=== PATIENT | female | born 1955 | race Caucasian/White ===

== ENCOUNTER 2020-09-16 20:39 | Inpatient (IN) | payer BC ==
[2020-09-17] MEDS ORDERED: Labetalol HCl 100 MG/20 ML VIAL SLOW IVP PRN (03:16)
[2020-09-17] MEDS ORDERED: Acetaminophen 650 MG Suppository PR PRN (04:10)
--- NOTE | 2020-09-17 04:33 | PDOC.HHP ---
Hospitalist HPI - History of Present Illness History of Present Illness: DATE OF ADMISSION: 09/17/2020 TIME OF ASSESSMENT: 0300 CHIEF COMPLAINT: Loss of vision in right eye HPI: Patient presents with complaints of persistent loss of vision in her right eye since Wednesday evening. States she was at a gathering at home and suddenly noticed trouble with her right eye. She thought it was due to her glasses being foggy. States while she was driving yesterday she closed her left eye and noticed complete loss of the superior visual field in her right eye. Denies any pain associated with it at any time. Reports a mild general headache. No speech changes. No extremity weakness or numbness. Denies any dizziness. Has otherwise felt well and without complaints. Has never experienced anything like this before and denies any trauma. ROS: No fevers, chlils or sweats. No n/v. No chest pain, palpitations or sob. No recent cough. All other review of systems are negative. ED COURSE: Patient seen at outside ER where she was given 325 mg Of Aspirin, 1 L of NS, and 1 gram of Tylenol for her headache. She was seen by the comptometer operator for retinal artery branch occlusion who advised admitting her for CVA work-up. EKG showed NSR. CT head: No acute intracranial findings. CXR: showed ?lingular infiltrate Labs notable for a potassium of 3.3. CBC and CMP unremarkable. Troponin normal. TPA not given due to symptoms starting >48 hours prior to presentation. PAST MEDICAL HISTORY: 1. History of Breast cancer 2. Hypertension 3. Tobacco use 4. Depression PAST SURGICAL HISTORY: 1. Bilateral mastectomy SOCIAL HISTORY: Patient is fully independent. She smokes 1/2 pack per day x 30 years. No alcohol use or drug use. FAMILY HISTORY: Noncontributory. History of renal disease/kidney stones in her sibling and children. ALLERGIES: No known drug allergies. CURRENT MEDICATIONS: 1. Citalopram. 2. Hydrochlorathiazide 25 mg PO daily. 3. Atenolol 25 mg PO daily. 4. Vitamin D3. 1,000 unit daily. 5. Aspirin 81 mg PO daily. 6. Trelegy Ellipta. - Exam General Appearance: NAD, awake alert General - other findings: 168/92, MAP: 117, Pulse: 58, RR: 17, Temp: 98.3 (Oral), O2 sat 98% Eye: anicteric sclera Eye - other findings: Slight delayed pupillary reflex in right eye, EOM intact ENT: normocephalic atraumatic, no oropharyngeal lesions ENT - other findings: No tenderness to methodist or jaw or scalp Neck: supple Heart: RRR, normal peripheral pulses Respiratory: CTAB, no rales, no ronchi, normal chest expansion, wheezes Respiratory - other findings: slight expiratory wheeze at right lung base Gastrointestinal: soft, non-tender, non-distended, no guarding, no rigidity Extremities: no edema Skin: normal turgor, no lesions, no rashes Neurological: cranial nerve grossly intact, normal sensation to touch, no weakness Musculoskeletal: normal tone, normal strength, no muscle wasting Psychiatric: normal affect, normal behavior, A&O x 3 Hospitalist Results - Labs Lab results: ESR Westergren 9 mm/hr (Less than 30) 09/16/20 22:18 C-Reactive Protein Less than 0.50 mg/dL (= or < 0.5) 09/16/20 22:18 - EKG Interpretation EKG: normal sinus rhythm on her EKG Hospitalist H&P A/P - Problem (1) Retinal artery branch occlusion of right eye Code(s): H34.231 - RETINAL ARTERY BRANCH OCCLUSION, RIGHT EYE Status: Acute (2) Headache Code(s): R51.9 - HEADACHE, UNSPECIFIED Status: Acute (3) Essential hypertension Code(s): I10 - ESSENTIAL (PRIMARY) HYPERTENSION Status: Chronic (4) Depression Code(s): F32.9 - MAJOR DEPRESSIVE DISORDER, SINGLE EPISODE, UNSPECIFIED Status: Chronic (5) Tobacco use Code(s): Z72.0 - TOBACCO USE Status: Chronic (6) History of breast cancer Code(s): Z85.3 - PERSONAL HISTORY OF MALIGNANT NEOPLASM OF BREAST Status: Chronic - Plan Plan: Retinal artery occlusion - Consult placed to ophthalmology here. (ESR and CRP negative) CVA rule out Cardiac monitoring CVA work-up including Echo and Brain MRI Check Lipid panel Carotid US Neuro consult Statin and Aspirin. Continue Tylenol for headache. Monitor BP, resume home meds once verified. Repeat CBC/CMP, BNP, lactic acid and Mg+ Lung Infiltrates- noted on CXR with wheezing on exam Monitor O2 sats Chest CT to assess ?infiltrates noted on CXR Resume home inhalers Duo neb PRN Tobacco use disorder: Tobacco cessation GI prophylaxis with Famotidine DVT Prophylaxis with mechanical SCDs. Code status: FULL CODE Case discussed with Dr. Luther who agrees with plan as above.
[2020-09-17] MEDS ORDERED: Acetaminophen 325 MG TAB ONE (06:21)
[2020-09-17] MEDS: Acetaminophen 325 MG TAB PO PRN ×2 (06:24→22:03)
[2020-09-17 06:49] LABS: #Basophils 0.1 thou/uL (0.0-0.2); #Eosinphils 0.1 thou/uL (0.0-0.7); #Lymphocytes 2.4 thou/uL (1.20-3.40); #Monocytes 0.3 thou/uL (0.11-0.59); #Neutrophils 2.7 thou/uL (1.40-6.50); %Basophils 1.2 % (0.0-1.0); %Eosinophils 2.1 % (0.0-10.0); %Lymphocytes 42.9 % (21.0-51.0); %Monocytes 5.8 % (0.0-10.0); %Neutrophils 47.9 % (42.0-75.0); Hemoglobin 13.8 g/dL (12.0-16.0); Mean Corpuscular HGB CONC 34.1 g/dL (32.0-36.0); Mean Corpuscular Volume 93.8 fL (78.0-98.0); Mean Platelet Volume 7.7 fL (7.4-10.4); Platelet Count 167 thou/uL (130-400); RBC Distribution Width 11.6 % (11.5-14.5); Red Blood Cell (RBC) Count 4.32 mill/uL (4.20-5.40); White Blood Cell (WBC) Count 5.7 thou/uL (4.8-10.8)
[2020-09-17 07:14] LABS: Anion Gap 11 mmol/L (10-20); BUN (Urea Nitrogen) 6 mg/dL (9.8-20.1); Calc. Creatinine Clearance 0 mL/min (70-130); Calcium 8.8 mg/dL (7.8-10.44); Carbon Dioxide 34 mmol/L (23-31); Cardiac Risk 3.8 (Less than 4.5); Chloride 99 mmol/L (98-107); Cholesterol 164 mg/dl (< 200 Desired); Estimated GFR-MDRD 74; Glucose 85 mg/dL (80-115); HDL Cholesterol 43 mg/dL (>60 Neg Risk); LDL Cholesterol, Calculated 96 mg/dL; Potassium 3.6 mmol/L (3.5-5.1); Sodium 140 mmol/L (136-145); Triglycerides 124 mg/dL (Less than 150)
--- NOTE | 2020-09-17 08:31 | CT ---
Exam: Chest CT without contrast HISTORY: Possible infiltrate on chest radiograph. COMPARISON: None Correlation: Chest radiograph 09/16/2020 FINDINGS: Lower neck and axilla: No masses or lymphadenopathy Mediastinum: Limited evaluation by the absence of IV contrast. No mass, lymphadenopathy or hematoma HEART: Normal heart size. No significant pericardial fluid. There is calcification of the mitral evelia dariel. Aorta: No aneurysm. No periaortic fat stranding Subdiaphragmatic structures: Surgically absent gallbladder Trachea and central bronchi: Patent Pleural spaces: No effusion Pneumothorax: None LUNGS: Scarring and atelectasis in the dependent portion of both lower lobes. No suspicious masses or nodules. Minimal emphysematous change involving the upper lobes. No significant consolidation or masses in the lingula. Osseous structures: No lytic or blastic lesions IMPRESSION: 1. No significant infiltrate in the lung parenchyma. There is scarring and atelectasis in the lower l obes. 2. Mild emphysematous changes in the upper lobes.
[2020-09-17 08:49] LABS: SARS-CoV-2 MS2 Positive; SARS-CoV-2 N Gene Negative; SARS-CoV-2 S Gene Negative; SARS-CoV-2 by NAA Not Detected (NotDetected); SARS-CoV-2 orf1ab Negative
[2020-09-17] MEDS ORDERED: Aspirin 325 mg Enteric Coated Tablet PO SCH (09:00)
[2020-09-17] MEDS ORDERED: Aspirin 325 MG TAB ONE (10:36)
[2020-09-17] MEDS ORDERED: Famotidine 20 MG TAB ONE (10:36)
[2020-09-17] MEDS: Famotidine 20 MG TAB PO SCH ×2 (10:42→21:53)
[2020-09-17 14:10] VITALS: BMI 25.3
--- NOTE | 2020-09-17 14:44 | MRI ---
Exam: Brain MRI without contrast HISTORY: CVA. Vision loss in the top half of the left eye since Wednesday. COMPARISON: None FINDINGS: Calvarial marrow signal intensity: Appropriate T1 signal Gradient echo sequence: No hemorrhage Brain parenchyma: No mass, mass effect or midline shift. Brain volume, age-appropriate. Cortical malcolm-white matter differentiation: Preserved Restricted diffusion: Central arterial flow voids are maintained. Absent restricted diffusion White matter signal intensities:Scattered T2, FLAIR white matter hyperintensities due to chronic smal l vessel ischemic changes Sinuses: Adequate aeration of the paranasal sinuses and mastoid air cells. IMPRESSION: 1. Absent restricted diffusion. No acute infarct. 2. Scattered chronic small vessel ischemic changes of the white matter
--- NOTE | 2020-09-17 15:14 | ULT ---
BILATERAL CAROTID DUPLEX ULTRASOUND: HISTORY: Stroke TECHNIQUE: Grayscale, color-flow and spectral Doppler ultrasound imaging of the extracranial carotid artery syst ems and vertebral arteries was performed bilaterally. FINDINGS: No large amount of echogenic plaque is seen involving the common carotid or internal carotid arteries . The peak systolic velocity in the right ICA measures 98.1 cm/s. The peak systolic velocity in the ri ght CCA measures 63.9 cm/s. The peak systolic velocity in the left ICA measures 98.3 cm/s. The peak systolic velocity in the l eft CCA measures 118.9 cm/s. The right IC/CC ration is1.5. The left IC/CC ratio is 0.8. Vertebral flow: antegrade, bilaterally. . IMPRESSION: No hemodynamically significant stenosis of left or right cervical carotid artery
[2020-09-17] MEDS ORDERED: hydrALAZINE 20 MG/ML VIAL SLOW IVP PRN (16:00)
[2020-09-17] MEDS: Atenolol 25 MG TAB PO SCH (16:27)
--- NOTE | 2020-09-17 17:42 | CON ---
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 HISTORY OF PRESENT ILLNESS: Ms. Lopez is a 64-year-old female, who presented with complaint of persistent loss of vision in right eye but yesterday when she was driving, she closed her left eye and found a visual defect in the right eye. The patient denies any focal weakness, focal paresthesias, nausea, vomiting, headaches, chest pain, abdominal pain, recent illness or recent exposure to COVID, dizziness, vertigo, or head trauma associated with episodes. In the emergency room, she was given aspirin. There was a cocern for central retinal branch artery occlusion and admitted for CVA workup. Head CT was done, which was negative for acute intracranial pathology. EKG showed normal sinus rhythm. Not a tpa candidate because symptom onset greater than 48 hours prior to presentation. REVIEW OF SYSTEMS: All systems reviewed and were negative except the pertinent positives and negatives mentioned in the HPI. PAST MEDICAL HISTORY: History of breast cancer, hypertension, tobacco abuse, depression. PAST SURGICAL HISTORY: Bilateral mastectomy. SOCIAL HISTORY: The patient is fully independent. She smoked half pack per day for the last 30 years. No history of alcohol or drug abuse. FAMILY HISTORY: Significant for renal stones in her sibling and children. ALLERGIES: NO KNOWN DRUG ALLERGIES. CURRENT MEDICATIONS: 1. Citalopram. 2. Hydrochlorothiazide. 3. Atenolol. 4. Vitamin D3. 5. Aspirin. 6. Trelegy Ellipta. PHYSICAL EXAMINATION: General Appearance: NAD, awake alert General - other findings: 168/92, MAP: 117, Pulse: 58, RR: 17, Temp: 98.3 (Oral), O2 sat 98% Eye: anicteric sclera Eye - other findings: Slight delayed pupillary reflex in right eye, EOM intact ENT: normocephalic atraumatic, no oropharyngeal lesions ENT - other findings: No tenderness to mu-ism or jaw or scalp Neck: supple Heart: RRR, normal peripheral pulses Respiratory: CTAB, no rales, no ronchi, normal chest expansion, wheezes Respiratory - other findings: slight expiratory wheeze at right lung base Gastrointestinal: soft, non-tender, non-distended, no guarding, no rigidity Extremities: no edema Skin: normal turgor, no lesions, no rashes Neurological: Mental status; the patient is alert and oriented to person, place and time. Speech is clear. Recent and remote memory intact. Fund of knowledge is appropriate. Cranial nerves 3 through 12, 2 right superior quadrantanopia. Motor, muscle tone and bulk are normal. Strength 5/5 bilaterally. Sensory intact. Cerebellar, finger-nose testing intact. Gait deferred due to the patient's safety reason. DATA REVIEWED: I reviewed the ESR and C-reactive protein, which were within normal range. EKG showed normal sinus rhythm. Head CT did not reveal acute intracranial pathology. ESR Westergren 9 mm/hr (Less than 30) 09/16/20 22:18 C-Reactive Protein Less than 0.50 mg/dL (= or < 0.5) 09/16/20 22:18 ASSESSMENT AND PLAN: (1) Retinal artery branch occlusion of right eye Code(s): H34.231 - RETINAL ARTERY BRANCH OCCLUSION, RIGHT EYE Status: Acute (2) Headache Code(s): R51.9 - HEADACHE, UNSPECIFIED Status: Acute (3) Essential hypertension Code(s): I10 - ESSENTIAL (PRIMARY) HYPERTENSION Status: Chronic (4) Depression Code(s): F32.9 - MAJOR DEPRESSIVE DISORDER, SINGLE EPISODE, UNSPECIFIED Status: Chronic (5) Tobacco use Code(s): Z72.0 - TOBACCO USE Status: Chronic (6) History of breast cancer Code(s): Z85.3 - PERSONAL HISTORY OF MALIGNANT NEOPLASM OF BREAST Status: Chronic Ms. Lopez is a 64-year-old female, presented with retinal artery branch occlusion of the right eye and Ophthalmology consult pending. ESR and C-reactive protein are negative. Consider MRI of the brain to rule out acute intracranial process. 2D echo to evaluate for left ventricular ejection fraction. Telemetry to rule out arrhythmias. Carotid ultrasound to rule out hemodynamically significant stenosis. Check hemoglobin A1c, lipid profile, and TSH. Start aspirin high-intensity statin for secondary stroke prevention. PT/OT. Continue home medications. Permissive control of blood pressure at this time. Strict control of blood glucose. Continue medical management per primary team. DVT prophylaxis. GI prophylaxis. We will continue to follow. Thank you for the consult. Job ID: [id number] MTDD
[2020-09-17] MEDS ORDERED: Atorvastatin Calcium 40 MG TAB PO SCH (21:00)
[2020-09-17] MEDS ORDERED: Citalopram 20 MG TAB PO SCH (21:00)
[2020-09-18 05:28] LABS: #Eosinphils 0.1 thou/uL (0.0-0.7); #Lymphocytes 2.9 thou/uL (1.20-3.40); #Monocytes 0.4 thou/uL (0.11-0.59); #Neutrophils 2.7 thou/uL (1.40-6.50); %Basophils 0.8 % (0.0-1.0); %Eosinophils 1.5 % (0.0-10.0); %Lymphocytes 47.3 % (21.0-51.0); %Monocytes 6.6 % (0.0-10.0); %Neutrophils 43.9 % (42.0-75.0); Hemoglobin 13.2 g/dL (12.0-16.0); Mean Corpuscular HGB CONC 33.9 g/dL (32.0-36.0); Mean Corpuscular Hemoglobin 31.9 pg (27.0-31.0); Mean Corpuscular Volume 94.1 fL (78.0-98.0); Mean Platelet Volume 8.3 fL (7.4-10.4); Platelet Count 150 thou/uL (130-400); RBC Distribution Width 11.6 % (11.5-14.5); Red Blood Cell (RBC) Count 4.15 mill/uL (4.20-5.40)
[2020-09-18 05:48] LABS: Anion Gap 12 mmol/L (10-20); BUN (Urea Nitrogen) 11 mg/dL (9.8-20.1); Calc. Creatinine Clearance 91 mL/min (70-130); Calcium 9.1 mg/dL (7.8-10.44); Carbon Dioxide 29 mmol/L (23-31); Chloride 104 mmol/L (98-107); Estimated GFR-MDRD 74; Glucose 95 mg/dL (80-115); Potassium 4.7 mmol/L (3.5-5.1); Sodium 140 mmol/L (136-145)
[2020-09-18] MEDS ORDERED: Potassium Chloride 20 MEQ TAB PO SCH (09:00)
[2020-09-18] MEDS ORDERED: Hydrochlorothiazide 25 MG TAB PO SCH (09:00)
[2020-09-18] MEDS ORDERED: Aspirin 81 mg Enteric Coated Tablet PO SCH (09:00)
[2020-09-18] MEDS: Atenolol 25 MG TAB PO SCH (10:18)
[2020-09-18] MEDS: Acetaminophen 325 MG TAB PO PRN (10:18)
[2020-09-18] MEDS: Famotidine 20 MG TAB PO SCH (10:20)
--- NOTE | 2020-09-18 13:14 | PDOC.NEUPN ---
- Subjective Encounter Date: 09/18/20 Subjective: Ms. Sharma continues to have visual deficit. No other acute events in the last 24 hours. - Objective Vital Signs & Weight: Vital Signs (12 hours) Temp Pulse Resp BP BP Pulse Ox 09/18/20 11:47 97.6 F 57 L 19 97 09/18/20 10:18 59 L 141/77 H 09/18/20 07:49 98.0 F 57 L 19 193/90 H 100 09/18/20 04:12 98.3 F 60 18 185/87 H 97 09/18/20 01:55 52 L 171/84 H Weight Weight 171 lb 8.314 oz I&O: 09/17/20 09/18/20 09/19/20 06:59 06:59 06:59 Intake Total 130 Balance 130 Result Diagrams: 09/18/20 05:02 09/18/20 05:02 Radiology Reviewed by me: Yes EKG Reviewed by me: Yes ROS - Review of Systems Constitutional: denies: fever, chills, sweats, weakness, malaise, other Eyes: denies: pain, vision change, conjunctivae inflammation, eyelid inflammation, redness, other ENT: denies: ear pain, ear discharge, nose pain, nose discharge, nose congestion, mouth pain, mouth swelling, throat pain, throat swelling, other Gastrointestinal: denies: nausea, vomiting, abdominal pain, diarrhea, constipation, melena, hematochezia, other Genitourinary: denies: dysuria, frequency, incontinence, hematuria, retention, other Musculoskeletal: denies: neck pain, shoulder pain, arm pain, back pain, hand pain, leg pain, foot pain, other Skin: denies: rash, lesions, poppy, bruising, other Neurological: denies: weakness, numbness, incoordination, change in speech, confusion, seizures, other - Medication Medications: Active Medications Generic Name Dose Route Start Last Admin Trade Name Freq PRN Reason Stop Dose Admin Acetaminophen 650 mg 09/17/20 04:10 09/18/20 10:18 Acetaminophen 325 Mg Tab PO 650 mg Q4H PRN Administration Headache/Fever/Mild Pain (1-3) Aspirin 81 mg 09/18/20 09:00 09/18/20 10:20 Aspirin 81 Mg Enteric Coated Tablet PO 81 mg DAILY SHUN Administration Atenolol 25 mg 09/17/20 09:00 09/18/20 10:18 Atenolol 25 Mg Tab PO 25 mg DAILY SHUN Administration Atorvastatin Calcium 40 mg 09/17/20 21:00 09/17/20 21:53 Atorvastatin Calcium 40 Mg Tab PO 40 mg HS SHUN Administration Famotidine 20 mg 09/17/20 09:00 09/18/20 10:20 Famotidine 20 Mg Tab PO 20 mg BID SHUN Administration Hydralazine HCl 10 mg 09/17/20 16:00 09/17/20 18:22 Hydralazine 20 Mg/Ml Vial SLOW IVP 10 mg Q4H PRN Administration Blood Pressure Hydrochlorothiazide 25 mg 09/18/20 09:00 09/18/20 10:18 Hydrochlorothiazide 25 Mg Tab PO 25 mg DAILY SHUN Administration Potassium Chloride 20 meq 09/18/20 09:00 09/18/20 10:20 Potassium Chloride 20 Meq Tab PO 20 meq DAILY SHUN Administration Sodium Chloride 10 ml 09/17/20 09:00 09/18/20 10:20 Flush - Normal Saline 10 Ml Syringe IVF 10 ml Q12HR SHUN Administration - Exam General Appearance: awake alert Eye: PERRL ENT: normocephalic atraumatic Neck: supple Respiratory: CTAB Cardiovascular: RRR Gastrointestinal: soft Extremities: no cyanosis Skin: normal turgor Neurological: CN's grossly intact, normal sensation to touch, no weakness, no focal deficits, no new deficit, vision deficit Musculoskeletal: normal tone, normal strength, no muscle wasting PSYCH: normal affect, normal behavior, A&O x 3, oriented to person, oriented to place, oriented to time Results - Labs Result Diagrams: 09/18/20 05:02 09/18/20 05:02 Lab results: WBC 6.0 thou/uL (4.8-10.8) 09/18/20 05:02 Hgb 13.2 g/dL (12.0-16.0) 09/18/20 05:02 Hct 39.0 % (36.0-47.0) 09/18/20 05:02 MCV 94.1 fL (78.0-98.0) 09/18/20 05:02 Plt Count 150 thou/uL (130-400) 09/18/20 05:02 Neutrophils % 43.9 % (42.0-75.0) 09/18/20 05:02 ESR Westergren 9 mm/hr (Less than 30) 09/16/20 22:18 Sodium 140 mmol/L (136-145) 09/18/20 05:02 Potassium 4.7 mmol/L (3.5-5.1) 09/18/20 05:02 Chloride 104 mmol/L (98-107) 09/18/20 05:02 Carbon Dioxide 29 mmol/L (23-31) 09/18/20 05:02 BUN 11 mg/dL (9.8-20.1) 09/18/20 05:02 Creatinine 0.79 mg/dL (0.6-1.1) 09/18/20 05:02 Glucose 95 mg/dL (80-115) 09/18/20 05:02 Calcium 9.1 mg/dL (7.8-10.44) 09/18/20 05:02 C-Reactive Protein Less than 0.50 mg/dL (= or < 0.5) 09/16/20 22:18 - EKG Interpretation EKG: Normal sinus rhythm - Radiology Interpretation MRI - head Additional Comment: MRI of the brain did not reveal acute intracranial pathology. PN A/P (1) Retinal artery branch occlusion of right eye Code(s): H34.231 - RETINAL ARTERY BRANCH OCCLUSION, RIGHT EYE Status: Acute (2) Headache Code(s): R51.9 - HEADACHE, UNSPECIFIED Status: Acute (3) Depression Code(s): F32.9 - MAJOR DEPRESSIVE DISORDER, SINGLE EPISODE, UNSPECIFIED Status: Chronic (4) Essential hypertension Code(s): I10 - ESSENTIAL (PRIMARY) HYPERTENSION Status: Chronic (5) History of breast cancer Code(s): Z85.3 - PERSONAL HISTORY OF MALIGNANT NEOPLASM OF BREAST Status: Chronic (6) Tobacco use Code(s): Z72.0 - TOBACCO USE Status: Chronic - Plan Daily Plan: out of bed/ambulate Ms. Lopez is a 64-year-old female with history significant for hypertension and d epression presented with visual deficit in the right eye. She continues to have right superior quadrantanopsia. Consider ophthalmology input regarding central retinal artery occlusion. MRI of the brain reviewed which was negative for acute intracranial pathology. Carotid Dopplers did not reveal hemodynamically significant stenosis. 2D echo completed. Results pending. Neurochecks every 4 hours. Telemetry to rule out arrhythmias. Continue aspirin and high intensity statin for secondary stroke prevention. Continue home medications. Strict control of blood pressure and blood glucose. Patient counseled about tobacco abuse. Continue medical management per primary team and ophthalmology. Plan and results of the testing was discussed in detail with the patient.
[2020-09-18 15:57] VITALS: BP 178/82; TEMP 98
== END 2020-09-18 19:55 | disposition home or self-care (01) | DRG 123 ==
LOC: ERS 20:39 → ERHOLD 22:07 → 2SE 09-17 13:31
PROVIDERS: ADMIT Internal Medicine; ATTEND Internal Medicine
DX: H34.231 Retinal artery branch occlusion, right eye (principal); H53.461 Homonymous bilateral field defects, right side; R51.9 Headache, unspecified; I10 Essential (primary) hypertension; Z20.828 Contact with and (suspected) exposure to other viral communicable diseases; F17.210 Nicotine dependence, cigarettes, uncomplicated; R91.8 Other nonspecific abnormal finding of lung field; F32.9 Major depressive disorder, single episode, unspecified; Z85.3 Personal history of malignant neoplasm of breast; Z71.6 Tobacco abuse counseling; Z79.82 Long term (current) use of aspirin; Z90.13 Acquired absence of bilateral breasts and nipples
CPT/HCPCS: 36415; 70551; 71250; 80048; 80061; 83735; 85025; 85652; 86140; 87635; 93306; 93880; J0360; U0003